=== PATIENT | female | born 1990 | race Caucasian/White ===

== ENCOUNTER 2018-02-28 14:17 | Day surgery (SDC) | payer OTHER, MEDICAID ==
[~2018-02-28 14:17] MED LIST: LIDOCAINE 2% (SDV) 5 ML INJ
[2018-02-28] MEDS ORDERED: FENTAnyl 50 MCG/ML VIAL IV ×2 (16:00)
[2018-02-28] MEDS ORDERED: HYDROmorphONE 1 MG/5 ML IV SYRINGE IV ×2 (16:00)
[2018-02-28] MEDS ORDERED: ALBUTEROL 0.083% (NEB) 2.5 MG/3 ML AMP HHN (16:00)
[2018-02-28] MEDS ORDERED: DIPHENHYDRAMINE 50 MG INJ IV (16:00)
[2018-02-28] MEDS ORDERED: FENTAnyl 50 MCG/ML VIAL (16:12)
[2018-02-28] MEDS ORDERED: SUCCINYLCHOLINE CHLORIDE 100 MG/5 ML SYG IV (16:12)
[2018-02-28] MEDS ORDERED: SUGAMMADEX SODIUM 200 MG/2 ML VIAL IV (16:12)
[2018-02-28] MEDS ORDERED: ROCURONIUM 50 MG INJ (16:20)
[2018-02-28] MEDS ORDERED: CEFAZOLIN 1 GM INJ (16:20)
[2018-02-28] MEDS ORDERED: PROPOFOL 20 ML (16:20)
[2018-02-28] MEDS: BUPIVACAINE 0.5% (SDV) 30 ML INJ (16:54)
[2018-02-28] MEDS ORDERED: MINERAL OIL LIGHT 10 ML VIAL (17:15)
[2018-02-28] MEDS: ONDANSETRON 4 MG INJ IV (18:09)
[2018-02-28] MEDS: HYDROmorphONE 1 MG/5 ML IV SYRINGE IV (18:09)
[2018-02-28] MEDS: MEPERIDINE 25 MG INJ IV (18:11)
[2018-02-28] MEDS ORDERED: HYDROCODONE/APAP (5/325) TAB PO (18:30)
[2018-02-28] MEDS: METOCLOPRAMIDE 10 MG INJ IV (18:59)
== END 2018-02-28 19:30 | disposition home or self-care (01) ==
LOC: SDS 14:17
DX: D18.01 Hemangioma of skin and subcutaneous tissue (principal)
CPT/HCPCS: 14020; 88305